=== PATIENT | male | born 1965 | race African-American/Black ===

== ENCOUNTER 2020-09-11 11:16 | Inpatient (IN) | payer SELFPAY ==
[2020-09-11] MEDS ORDERED: NA CHLORIDE 0.9% 1,000 ML ONE (12:11)
--- NOTE | 2020-09-11 12:21 | RAD REPORT ---
EXAM DESCRIPTION: Adi Single View09/11/2020 11:56 am CLINICAL HISTORY: Shortness of breath COMPARISON: none FINDINGS: Mild bilateral pulmonary opacities suspected. Heart is probably upper limits normal size. Mild prominence of mediastinum IMPRESSION: Mild bilateral pulmonary opacities probably pneumonia Mild prominence of mediastinum may represent lymphadenopathy, vessels or mediastinal fat
[2020-09-11 12:28] LABS: Protime INR 1.43
[2020-09-11 12:29] LABS: Absolute Lymphocytes (CBC) 0.5 K/uL (0.7-4.9); Basophils % 0.5 % (0-1.3); Lymphocytes % 15.3 % (15.3-44.8); RBC Red Blood Cell Count 5.46 M/uL (4.33-5.43)
[2020-09-11] MEDS ORDERED: dexAMETHasone 10 MG/ML VIAL ONE (12:31)
[2020-09-11 12:50] LABS: ALT/SGPT 32 U/L (12-78); AST/SGOT 21 U/L (15-37); Albumin 3.4 g/dL (3.4-5.0); Alkaline Phosphatase 78 U/L (45-117); BUN Blood Urea Nitrogen 17 mg/dL (7-18); Bicarbonate 23 mmol/L (21-32); Bilirubin Direct 0.2 mg/dL (0-0.2); Bilirubin Total 0.7 mg/dL (0.2-1.0); Glucose Level 98 mg/dL (74-106); Magnesium 2.2 mg/dL (1.8-2.4); NT PRO-BNP 28 pg/mL (<125); Potassium 3.8 mmol/L (3.5-5.1); Protein, Total 7.6 g/dL (6.4-8.2); Sodium Level 137 mmol/L (136-145); Troponin (Emerg Dept Use Only) < 0.02 ng/mL (0.0-0.045)
[2020-09-11 13:42] LABS: SARS-COV-2 RT PCR POSITIVE (NEGATIVE)
--- NOTE | 2020-09-11 14:34 | EDPHYS ---
Physician Documentation [facility] Name: Angel Luis Escobar Age: 55 yrs Sex: Male : 1965 Arrival Date: 09/11/2020 Time: 11:20 Bed 13 Private MD: ED Physician Iván Richardson HPI: 09/11 11:38 This 55 yrs old Black Male presents to ER via EMS with complaints of Covid +-Shortness jmm of Breath. 11:38 The patient or guardian reports cough. Onset: The symptoms/episode began/occurred jmm gradually, 1 week(s) ago. Modifying factors: The symptoms are alleviated by nothing. the symptoms are aggravated by nothing. This is a 55 year old male with a history of htn, dm, hlp that presents to the ED with complaints of shortness of breath, cough beginnina approx 1 week ago. patient tested positive for covid 19 yesterday complains of increased sob. . Historical: - Allergies: 11:28 No Known Allergies; em - Home Meds: 15:07 allopurinol 300 mg Oral tab 1 tab once daily [Active]; metformin 500 mg Oral tab 1 tab em daily [Active]; losartan 50 mg oral tab 1 tab once daily [Active]; atorvastatin 20 mg oral tab 1 tab once daily [Active]; metoprolol tartrate 100 mg Oral tab 1 tab once daily [Active]; omeprazole 40 mg Oral cpDR 1 cap once daily [Active]; amlodipine 10 mg tab 1 tab once daily [Active]; - PMHx: 11:28 Hypertension; em 15:07 Gout; Hyperlipidemia; em - PSHx: 11:28 Knee surgery; em - Immunization history:: Adult Immunizations up to date. - Social history:: Smoking status: Patient denies any tobacco usage or history of. ROS: 11:38 Constitutional: Positive for body aches, chills, fever. jmm 11:38 Respiratory: Positive for cough, shortness of breath. 11:38 All other systems are negative. Exam: 11:38 Constitutional: This is a well developed, well nourished patient who is awake, alert, jmm and in no acute distress. Head/Face: atraumatic. Eyes: EOMI, no conjunctival erythema appreciated ENT: Moist Mucus Membranes Neck: Trachea midline, Supple Chest/axilla: Normal chest wall appearance and motion. Cardiovascular: Regular rate and rhythm. No edema appreciated Respiratory: Normal respirations, no respiratory distress appreciated Abdomen/GI: Non distended, soft Back: Normal ROM Skin: General appearance color normal MS/ Extremity: Moves all extremities, no obvious deformities appreciated, no edema noted to the lower extremities Neuro: Awake and alert, normal gait Psych: Behavior is normal, Mood is normal, Patient is cooperative and pleasant 12:31 ECG was reviewed by the Attending Physician. [facility] Vital Signs: 11:22 BP 134 / 87; Pulse 82; Resp 20; Temp 99.4(O); Pulse Ox 96% on 2 lpm NC; Weight 136.08 em kg; Height 6 ft. 0 in. (182.88 cm); Pain 0/10; 12:35 Pulse Ox 87% on R/A; em 12:36 BP 131 / 85; Pulse 80; Resp 18; Pulse Ox 92% on 2 lpm NC; em 13:44 BP 132 / 81; Pulse 78; Resp 18; Pulse Ox 93% 2 lpm ; em 15:08 BP 147 / 93; Pulse 80; Resp 18; Pulse Ox 95% on 3 lpm NC; em 11:22 Body Mass Index 40.69 (136.08 kg, 182.88 cm) em MDM: 11:29 Patient medically screened. [facility] 14:31 Data reviewed: vital signs, nurses notes. Counseling: I had a detailed discussion with [facility] the patient and/or guardian regarding: the historical points, exam findings, and any diagnostic results supporting the discharge/admit diagnosis, lab results, radiology results, the need for further work-up and treatment in the hospital. ED course: I discussed the patient with Dr. Gonzalez whom accepted the patient for admission. . 09/11 11:27 Order name: Basic Metabolic Panel; Complete Time: 13:18 [facility] 09/11 11:27 Order name: CBC with Diff; Complete Time: 13:18 [facility] 09/11 11:27 Order name: LFT's; Complete Time: 13:18 [facility] 09/11 11:27 Order name: Magnesium; Complete Time: 13:19 [facility] 09/11 11:27 Order name: NT PRO-BNP; Complete Time: 13:19 [facility] 09/11 11:27 Order name: PT-INR; Complete Time: 13: [facility] 09/11 11:27 Order name: Troponin (emerg Dept Use Only); Complete Time: 13:19 [facility] 09/11 11:27 Order name: Procalcitonin; Complete Time: 14:01 [facility] 09/11 11:27 Order name: Lactate; Complete Time: 13:19 [facility] 09/11 13:42 Order name: COVID-19/FLU A+B; Complete Time: 13:51 [facility] 09/11 19:57 Order name: Glucose, Ancillary Testing; Complete Time: 20:11 [facility] 09/11 23:21 Order name: Urinalysis [facility] 09/11 11:27 Order name: XRAY Chest (1 view); Complete Time: 12:23 [facility] 09/11 11:27 Order name: EKG; Complete Time: 11:28 [facility] 09/11 11:27 Order name: Cardiac monitoring; Complete Time: 13:03 [facility] 09/11 11:27 Order name: EKG - Nurse/Tech; Complete Time: 13:03 [facility] 09/11 11:27 Order name: IV Saline Lock; Complete Time: 12:13 [facility] 09/11 11:27 Order name: Labs collected and sent; Complete Time: 12:13 [facility] 09/11 11:27 Order name: O2 Per Protocol; Complete Time: 12:13 [facility] 09/12 06:02 Order name: CBC with Automated Diff [facility] 09/12 06:33 Order name: Phosphorus [facility] 09/12 06:33 Order name: C-Reactive Protein [facility] 09/12 06:33 Order name: Magnesium [facility] 09/12 06:33 Order name: Ferritin [facility] 09/12 09:05 Order name: CBC Smear Scan [facility] 09/12 13:34 Order name: ABG Arterial Blood Gas [facility] 09/12 13:44 Order name: RAD [facility] 09/11 11:27 Order name: O2 Sat Monitoring; Complete Time: 12:13 jmm EC:31 Rate is 79 beats/min. Rhythm is regular. QRS [place] is Normal. [place] interval is normal. QRS jmm interval is normal. QT interval is normal. No Q waves. T waves are Normal. No ST changes noted. Reviewed by me. Administered Medications: 12:27 Drug: Decadron - Dexamethasone 10 mg Route: IVP; Site: right antecubital; em 14:01 Follow up: Response: No adverse reaction em Disposition: 09/12 17:51 Co-signature as Attending Physician, Iván Richardson MD I agree with the assessment and kdr plan of care. Disposition: 09/11/20 14:33 Hospitalization ordered by Edmar Gonzalez for Observation. Preliminary diagnosis are Coronavirus infection, unspecified, Hypoxia. - Bed requested for Telemetry/MedSurg (observation). - Status is Observation. em - Condition is Stable. - Problem is new. - Symptoms are unchanged. Signatures: Dispatcher [employer] EDCO Iván Richardson MD MD [facility] Rob Mcclure PA PA [facility] Jay Jamison, RN RN em Vikki Juárez RN RN Tiara Ortega Corrections: (The following items were deleted from the chart) 09/11 12:50 11:28 Influenza Screen (A \T\ B)+BA.LAB.BRZ ordered. [facility] EDCO 12:50 11:28 CORONAVIRUS+MR.LAB.BRZ ordered. [facility]CO 14:53 14:33 Hospitalization Ordered by Edmar Gonzalez for Observation. Preliminary diagnosis hb is Coronavirus infection, unspecified; Hypoxia. Bed requested for Telemetry/MedSurg (observation). Status is Observation. Condition is Stable. Problem is new. Symptoms are unchanged. [facility] 09/12 14:42 09/11 14:53 09/11/2020 14:33 Hospitalization Ordered by Edmar Gonzalez for Observation. eb Preliminary diagnosis is Coronavirus infection, unspecified; Hypoxia. Bed requested for [facility] ER HOLD. Status is Observation. Condition is Stable. Problem is new. Symptoms are unchanged. hb 09/12 15:58 14:42 09/11/2020 14:33 Hospitalization Ordered by Edmar Gonzalez for Observation. em Preliminary diagnosis is Coronavirus infection, unspecified; Hypoxia. Bed requested for Telemetry/MedSurg (observation). Status is Observation. Condition is Stable. Problem is new. Symptoms are unchanged. eb
--- NOTE | 2020-09-11 14:34 | ER ---
Nurse's Notes [facility] Name: Angel Luis Escobar Age: 55 yrs Sex: Male : 1965 Arrival Date: 09/11/2020 Time: 11:20 Bed 13 Private MD: Diagnosis: Coronavirus infection, unspecified;Hypoxia Presentation: 09/11 11:22 Chief complaint: EMS states: called out for shortness of breath after testing POS. for em covid yesterday, reports productive cough, SPO2 93 on scene, placed on NC at 2 LPM, denies chest pain. Coronavirus screen: cough unrelated to allergies, nausea, Client reports previous positive COVID test result. Date of collection: September 08, 2020. Ebola Screen: Patient negative for fever greater than or equal to 101.5 degrees Fahrenheit, and additional compatible Ebola Virus Disease symptoms Patient denies exposure to infectious person. Patient denies travel to an Ebola-affected area in the 21 days before illness onset. Initial Sepsis Screen: Does the patient meet any 2 criteria? No. Patient's initial sepsis screen is negative. Does the patient have a suspected source of infection? No. Patient's initial sepsis screen is negative. Risk Assessment: Do you want to hurt yourself or someone else? Patient reports no desire to harm self or others. Onset of symptoms was September 11, 2020. 11:22 Method Of Arrival: EMS: [facility] em 11:22 Acuity: RIYA 3 em Historical: - Allergies: : No Known Allergies; em - Home Meds: 15:07 allopurinol 300 mg Oral tab 1 tab once daily [Active]; metformin 500 mg Oral tab 1 tab em daily [Active]; losartan 50 mg oral tab 1 tab once daily [Active]; atorvastatin 20 mg oral tab 1 tab once daily [Active]; metoprolol tartrate 100 mg Oral tab 1 tab once daily [Active]; omeprazole 40 mg Oral cpDR 1 cap once daily [Active]; amlodipine 10 mg tab 1 tab once daily [Active]; - PMHx: 11:28 Hypertension; em 15:07 Gout; Hyperlipidemia; em - PSHx: 11:28 Knee surgery; em - Immunization history:: Adult Immunizations up to date. - Social history:: Smoking status: Patient denies any tobacco usage or history of. Screenin:30 Abuse screen: Denies threats or abuse. Nutritional screening: No deficits noted. em Tuberculosis screening: No symptoms or risk factors identified. Fall Risk None identified. Assessment: 11:22 General: Appears in no apparent distress. comfortable, Behavior is calm, cooperative, em appropriate for age. Pain: Denies pain. Neuro: Level of Consciousness is awake, alert, obeys commands, Oriented to person, place, time, situation, Appropriate for age. Cardiovascular: Denies chest pain, Capillary refill < 3 seconds Patient's skin is warm and dry. Rhythm is sinus rhythm. Respiratory: Reports shortness of breath on exertion cough that is productive, Airway is patent Respiratory effort is even, unlabored, Respiratory pattern is regular, symmetrical. GI: Reports nausea. Derm: Skin is intact, is healthy with good turgor, Skin is pink, warm \T\ dry. Musculoskeletal: Capillary refill < 3 seconds, Range of motion: intact in all extremities. 12:37 Reassessment: Patient appears in no apparent distress at this time. Patient and/or em family updated on plan of care and expected duration. Pain level reassessed. Patient is alert, oriented x 3, equal unlabored respirations, skin warm/dry/pink. 13:44 Reassessment: Patient appears in no apparent distress at this time. Patient and/or em family updated on plan of care and expected duration. Pain level reassessed. Patient is alert, oriented x 3, equal unlabored respirations, skin warm/dry/pink. 15:07 Reassessment: Patient appears in no apparent distress at this time. Patient and/or em family updated on plan of care and expected duration. Pain level reassessed. Patient is alert, oriented x 3, equal unlabored respirations, skin warm/dry/pink. Vital Signs: 11:22 BP 134 / 87; Pulse 82; Resp 20; Temp 99.4(O); Pulse Ox 96% on 2 lpm NC; Weight 136.08 em kg; Height 6 ft. 0 in. (182.88 cm); Pain 0/10; 12:35 Pulse Ox 87% on R/A; em 12:36 BP 131 / 85; Pulse 80; Resp 18; Pulse Ox 92% on 2 lpm NC; em 13:44 BP 132 / 81; Pulse 78; Resp 18; Pulse Ox 93% 2 lpm ; em 15:08 BP 147 / 93; Pulse 80; Resp 18; Pulse Ox 95% on 3 lpm NC; em 11:22 Body Mass Index 40.69 (136.08 kg, 182.88 cm) em ED Course: 11:20 Patient arrived in ED. em 11:25 Triage completed. em 11:26 Rob Mcclure PA is PHCP. [facility] 11:26 Iván Richardson MD is Attending Physician. [facility] 11:28 Jay Jamison, RN is Primary Nurse. em 11:28 Arm band placed on. em 11:30 Patient has correct armband on for positive identification. Placed in gown. Bed in low em position. Side rails up X2. Pulse ox on. NIBP on. 11:56 XRAY Chest (1 view) In Process Unspecified. EDMS 12:10 Initial lab(s) drawn, by ok, sent to lab. Inserted saline lock: 20 gauge in right em antecubital area, using aseptic technique. Blood collected. 12:50 EKG done, by ED staff, reviewed by Rob DE LA FUENTE. jp3 14:32 Edmar Gonzalez is Hospitalizing Provider. [facility] 15:04 No provider procedures requiring assistance completed. Patient admitted, IV remains in em place. Administered Medications: 12:27 Drug: Decadron - Dexamethasone 10 mg Route: IVP; Site: right antecubital; em 14:01 Follow up: Response: No adverse reaction em Outcome: 14:33 Decision to Hospitalize by Provider. [facility] 09/12 15:26 Admitted to Med/surg accompanied by tech, via stretcher, room 413, with oxygen, with em chart, Report called to PARUL Falcon Condition: stable Instructed on the need for admit, Demonstrated understanding of instructions. 15:58 Patient left the ED. em Signatures: Dispatcher [employer] EDIA Rob Mcclure PA PA Jay Lynn, RN RN em Johnny Sarabia jp3
--- NOTE | 2020-09-11 15:10 | P.HP ---
Certification for Inpatient Patient admitted to: Observation With expected LOS: <2 Midnights Practitioner: I am a practitioner with admitting privileges, knowledge of patient current condition, hospital course, and medical plan of care. Services: Services provided to patient in accordance with Admission requirements found in Title 42 Section 412.3 of the Code of Federal Regulations Patient History Date of Service: 09/11/20 Reason for admission: Shortness of breath History of Present Illness: 55-year-old gentleman with a history of hypertension and hypercholesteremia presented to the emergency department with a complaint of progressive shortness of breath. Patient report 1 week history of cough, fever and shortness of breath. He did and COVID test 4 days ago and was told he is positive yesterday. He presented to the emergency department because of worsening shortness of breath. He was hypoxic on room air in the ED. Chest x-ray demonstrated bilateral pulmonary infiltrates consistent with COVID pneumonia. Patient given a dose of IV steroids and hospitalized for further management. Allergies No Known Drug Allergies Allergy (Unverified 01/11/15 12:20) Unknown NKDA Allergy (Uncoded 01/11/14 19:43) Unknown Home Medications: Allopurinol 300 mg PO DAILY 09/11/20 Amlodipine [Norvasc*] 10 mg PO DAILY 09/11/20 Losartan Potassium 50 mg PO DAILY 09/11/20 Metformin HCl [Glucophage] 500 mg PO DAILY WITH BREAKFAST 09/11/20 Metoprolol Tartrate 100 mg PO DAILY 09/11/20 Omeprazole 40 mg PO DAILY 09/11/20 - Past Medical/Surgical History -: Hypertension -: Hyperlipidemia -: Gout -: GERD -: Knee surgery - Family History Family History: Reviewed- Non-Contributory (The patient reports her mother when he was very young, father a has no medical problem.) - Social History Smoking Status: Never smoker Alcohol use: No CD- Drugs: No Place of Residence: Home Review of Systems Other: Patient denies any diarrhea or abdominal pain or chest pain or palpitation. Except as documented, all other systems reviewed and negative. Physical Examination - Physical Exam General: Alert, In no apparent distress, Oriented x3 HEENT: Normocephalic, EOMI, Sclerae nonicteric Neck: Supple, JVD not distended Respiratory: Normal air movement, Crackles/rales (Mild bibasilar rales) Cardiovascular: No edema, Regular rate/rhythm, Normal S1 S2 Gastrointestinal: Soft and benign, Non-distended, No tenderness Musculoskeletal: No swelling, No tenderness Integumentary: No rashes, No erythema Neurological: Normal speech, Normal strength at 5/5 x4 extr, Cranial nerves 3-12 intact - Studies Laboratory Data (last 24 hrs) 09/11/20 12:10: PT 16.7 H, INR 1.43 09/11/20 12:10: WBC 3.0 L, Hgb 14.9, Hct 45.0, Plt Count 131 L 09/11/20 12:10: Sodium 137, Potassium 3.8, BUN 17, Creatinine 1.17, Glucose 98, Magnesium 2.2, Total Bilirubin 0.7, AST 21, ALT 32, Alkaline Phosphatase 78 Assessment and Plan - Problems (Diagnosis) (1) Pneumonia due to COVID-19 virus Current Visit: Yes Status: Acute (2) Acute respiratory failure with hypoxia Current Visit: Yes Status: Acute (3) Hypertension Current Visit: Yes Status: Acute - Plan Place under observation. Start IV methylprednisolone Start vitamin-C, vitamin-D and zinc supplementation. Titrate oxygen Arranged for home oxygen. Continue home antihypertensives. Monitor inflammatory markers. - Advance Directives Does patient have a Living Will: No Does patient have a Durable POA for Healthcare: No
[2020-09-11] MEDS ORDERED: ACETAMINOPHEN 500 MG TAB PO PRN (15:26)
[2020-09-11] MEDS: ENOXAPARIN 40 MG/0.4 ML SQ SCH (16:48)
[2020-09-11] MEDS ORDERED: ENOXAPARIN 40 MG/0.4 ML SQ ONE (16:52)
[2020-09-11] MEDS ORDERED: INFLUENZA VACCINE (for 3y+) 0.5 ML DOSE IMVAC ONE (20:00)
[2020-09-11] MEDS ORDERED: METHYLPREDNISOLONE 40 MG INJ ONE ×2 (20:30→21:02)
[2020-09-11] MEDS ORDERED: POTASSIUM CL SA 10 MEQ TAB PO ONE ×2 (20:30→21:00)
[2020-09-11] MEDS ORDERED: ASCORBIC ACID 500 MG TABLET ONE (20:30)
[2020-09-11] MEDS: METHYLPREDNISOLONE 125 MG INJ IV SCH (20:40)
[2020-09-11] MEDS: ASCORBIC ACID 500 MG TABLET PO SCH (20:41)
[2020-09-11 23:20] LABS: Urine Appearance CLEAR; Urine Bilirubin NEGATIVE (NEG); Urine Blood NEGATIVE (NEG); Urine Color YELLOW; Urine Glucose NEGATIVE (NEG); Urine Protein NEGATIVE (NEG); Urine Specific Gravity 1.025 (1.005-1.030); Urine pH 5.5 (5.0-7.0)
[2020-09-11 23:21] LABS: Urine Microscopic Reflex NO UMIC
[2020-09-12] MEDS: AMLODIPINE 10 MG TAB PO SCH ×2 (05:30→09:00)
[2020-09-12] MEDS ORDERED: AMLODIPINE 10 MG TAB ONE ×2 (05:42→07:43)
[2020-09-12 05:55] LABS: Absolute Lymphocytes (CBC) 0.4 K/uL (0.7-4.9); Basophils % 0.4 % (0-1.3); Hematocrit 42.9 % (39.6-49.0); Lymphocytes % 17.4 % (15.3-44.8); MPV 9.4 fL (7.6-11.3); RBC Red Blood Cell Count 5.28 M/uL (4.33-5.43)
[2020-09-12 06:25] LABS: C-Reactive Protein 49.3 mg/L (<3.00); Ferritin 566.1 ng/mL (26-388); Phosphorus 3.2 mg/dL (2.5-4.9)
[2020-09-12 06:32] LABS: Magnesium 2.5 mg/dL (1.8-2.4)
[2020-09-12 07:14] VITALS: BMI 40.6
[2020-09-12] MEDS ORDERED: METHYLPREDNISOLONE 125 MG INJ ONE (07:43)
[2020-09-12] MEDS ORDERED: VITAMIN D 1000 UNIT TAB ONE (07:44)
[2020-09-12] MEDS ORDERED: ZINC SULFATE 220 MG CAP ONE (07:44)
[2020-09-12] MEDS ORDERED: ASCORBIC ACID 500 MG TABLET ONE (07:44)
[2020-09-12] MEDS ORDERED: ENOXAPARIN 40 MG/0.4 ML SQ ONE (07:44)
[2020-09-12] MEDS: ASCORBIC ACID 500 MG TABLET PO SCH ×2 (09:00→22:14)
[2020-09-12] MEDS: VITAMIN D 5,000 UNIT CAP PO SCH (09:00)
[2020-09-12] MEDS: ENOXAPARIN 40 MG/0.4 ML SQ SCH (09:00)
[2020-09-12] MEDS: METHYLPREDNISOLONE 125 MG INJ IV SCH ×2 (09:00→21:53)
[2020-09-12] MEDS: ZINC SULFATE 220 MG CAP PO SCH (09:00)
[2020-09-12 09:05] LABS: Blood Morphology Comment NOT SEEN (NOT SEEN); Platelet Estimate DECR; White Blood Cell Scan OK (OK)
--- NOTE | 2020-09-12 10:41 | P.DS ---
Admission Date: 09/12/20 Discharge Date: 09/14/20 Disposition: ROUTINE DISCHARGE Discharge Condition: FAIR Reason for Admission: Shortness of breath - Problems (1) Pneumonia due to COVID-19 virus Status: Acute (2) Acute respiratory failure with hypoxia Status: Acute (3) Hypertension Status: Acute Brief History of Present Illness: 55-year-old gentleman with a history of hypertension and hypercholesteremia presented to the emergency department with a complaint of progressive shortness of breath. Patient report 1 week history of cough, fever and shortness of breath. He did and COVID test 4 days ago and was told he is positive yesterday. He presented to the emergency department because of worsening shortness of breath. He was hypoxic on room air in the ED. Chest x-ray demonstrated bilateral pulmonary infiltrates consistent with COVID pneumonia. Patient given a dose of IV steroids and hospitalized for further management. Hospital Course: Patient admitted to the medical and treated with IV Solu-Medrol, seen, vitamin-D and vitamin-C supplementation. His oxygen saturation was 88% on room air. Patient required high-flow oxygen briefly during the hospital stay but he was weaned down to 2 L of oxygen and he tolerated it with good oxygen saturation both at rest and with ambulation. Patient is discharged with home oxygen and oral prednisone. He is informed to return to the emergency department should he require more oxygen to maintain his oxygen saturation or because he is more short of breath. Vital Signs/Physical Exam: Temp Pulse Resp BP Pulse Ox 98.3 F 91 H 22 H 140/90 93 09/12/20 08:00 09/12/20 09:00 09/12/20 08:00 09/12/20 09:00 09/12/20 08:00 General: Alert, In no apparent distress HEENT: Sclerae nonicteric Neck: Supple Cardiovascular: No edema, Regular rate/rhythm Gastrointestinal: Soft and benign, Non-distended Musculoskeletal: No swelling Integumentary: No rashes Neurological: Other (No focal deficit.) Laboratory Data at Discharge: WBC 2.5 K/uL (4.3-10.9) L D 09/12/20 05:35 Hgb 14.6 g/dL (13.6-17.9) 09/12/20 05:35 Hct 42.9 % (39.6-49.0) 09/12/20 05:35 Plt Count 137 K/uL (152-406) L 09/12/20 05:35 PT 16.7 SECONDS (9.5-12.5) H 09/11/20 12:10 INR 1.43 09/11/20 12:10 Sodium 137 mmol/L (136-145) 09/11/20 12:10 Potassium 3.8 mmol/L (3.5-5.1) 09/11/20 12:10 BUN 17 mg/dL (7-18) 09/11/20 12:10 Creatinine 1.17 mg/dL (0.55-1.3) 09/11/20 12:10 Glucose 98 mg/dL (74-106) 09/11/20 12:10 Phosphorus 3.2 mg/dL (2.5-4.9) 09/12/20 05:35 Magnesium 2.5 mg/dL (1.8-2.4) H 09/12/20 05:35 Total Bilirubin 0.7 mg/dL (0.2-1.0) 09/11/20 12:10 AST 21 U/L (15-37) 09/11/20 12:10 ALT 32 U/L (12-78) 09/11/20 12:10 Alkaline Phosphatase 78 U/L (45-117) 09/11/20 12:10 Home Medications: Allopurinol 300 mg PO DAILY 09/11/20 Amlodipine [Norvasc*] 10 mg PO DAILY 09/11/20 Losartan Potassium 50 mg PO DAILY 09/11/20 Metformin HCl [Glucophage*] 500 mg PO DAILY WITH BREAKFAST 09/11/20 Metoprolol Tartrate 100 mg PO DAILY 09/11/20 Omeprazole 40 mg PO DAILY 09/11/20 Ascorbic Acid [Vitamin C*] 2,000 mg PO BID #240 tablet 09/12/20 Atorvastatin Calcium [Lipitor*] 20 mg PO BEDTIME #30 tab 09/12/20 Cholecalciferol (Vitamin D3) [Vitamin D 5,000 IU Cap*] 5,000 unit PO DAILY #30 cap 09/12/20 Zinc Sulfate [Zinc Sulfate*] 220 mg PO DAILY #30 cap 09/12/20 predniSONE [Prednisone] 20 mg PO BID #42 tablet 09/12/20 New Medications: Atorvastatin Calcium [Lipitor*] 20 mg PO BEDTIME #30 tab predniSONE [Prednisone] 20 mg PO BID #42 tablet Ascorbic Acid [Vitamin C*] 2,000 mg PO BID #240 tablet Cholecalciferol (Vitamin D3) [Vitamin D 5,000 IU Cap*] 5,000 unit PO DAILY #30 cap Zinc Sulfate [Zinc Sulfate*] 220 mg PO DAILY #30 cap Diet: ADA Activity: Ad ene Followup: Prashanth Miller MD [ACTIVE - CAN ADMIT] - 1-2 Weeks (call for appointment.) Unknown,U [Primary Care Provider] - 1-2 Weeks (call for appointment) Time spent managing pt's care (in minutes): 36
--- NOTE | 2020-09-12 12:56 | P.PN ---
Subjective Date of Service: 09/12/20 Chief Complaint: Shortness of breath Nurse report patient is requiring more oxygen. Patient reports feeling better than yesterday. Physical Examination - Vital Signs Temperature: 98.3 F Blood Pressure: 140/90 Pulse: 91 Respirations: 22 Pulse Ox (%): 93 - Physical Exam General: In no apparent distress, Oriented x3 Neck: Supple Cardiovascular: No edema, Regular rate/rhythm Gastrointestinal: Soft and benign, Non-distended Musculoskeletal: No swelling, No tenderness Integumentary: No rashes, No erythema Neurological: Normal speech, Normal strength at 5/5 x4 extr Assessment And Plan - Current Problems (Diagnosis) (1) Pneumonia due to COVID-19 virus Current Visit: Yes Status: Acute (2) Acute respiratory failure with hypoxia Current Visit: Yes Status: Acute (3) Hypertension Current Visit: Yes Status: Acute - Plan Continue IV methylprednisolone Continue vitamin-C, vitamin-D and zinc supplementation. Titrate oxygen. Check arterial blood gas. Repeat chest x-ray today. Arranged for home oxygen. Continue home antihypertensives. Monitor inflammatory markers have trended down.
--- NOTE | 2020-09-12 13:30 | EKG ---
Test Date: 2020-09-11 Test Time: 12:27:31 Application Support Engineer: MAUREEN MEASUREMENT RESULTS: Intervals: Rate: 79 VA: 152 QRSD: 90 QT: 402 QTc: 460 [place]: P: 50 VA: 152 QRS: 3 T: 21 INTERPRETIVE STATEMENTS: Normal sinus rhythm Normal ECG Compared to ECG 08/27/2012 12:13:15 Sinus bradycardia no longer present T-wave abnormality no longer present Electronically Signed On 09-12-20 13:28:23 [employer]INDLE [employer]AME CARVER by Dillon Lin
[2020-09-12 13:32] LABS: Arterial Blood Carboxyhemoglob 0.8 % (0-1.5); Blood Gas Oxyhemoglobin 89.9 % (94-97); Blood O2 Saturation 91.5 % (92-98.5)
--- NOTE | 2020-09-12 13:44 | RAD REPORT ---
EXAM DESCRIPTION: RAD - Chest Single View - 09/12/2020 1:15 pm CLINICAL HISTORY: Follow up COVID pneumonia Chest pain. COMPARISON: Chest Single View dated 09/11/2020; ABDOMEN 1 VIEW KUB dated 10/20/2008 FINDINGS: Portable technique limits examination quality. The lungs are underinflated resulting in vascular crowding. Mild interstitial lung opacities appears mildly improved since preceding day's study. The heart is normal in size.
[2020-09-12] MEDS: METOPROLOL XL 100 MG TAB PO SCH (21:00)
[2020-09-12] MEDS: ATORVASTATIN 20 MG TAB PO SCH (21:53)
[2020-09-12] MEDS ORDERED: METOPROLOL XL 50 MG TAB PO ONE (22:31)
[2020-09-13 06:39] LABS: C-Reactive Protein 22.1 mg/L (<3.00); Ferritin 565.5 ng/mL (26-388)
[2020-09-13] MEDS: AMLODIPINE 10 MG TAB PO SCH (09:06)
[2020-09-13] MEDS: ZINC SULFATE 220 MG CAP PO SCH (09:06)
[2020-09-13] MEDS: VITAMIN D 5,000 UNIT CAP PO SCH (09:06)
[2020-09-13] MEDS: METHYLPREDNISOLONE 125 MG INJ IV SCH ×2 (09:07→21:34)
[2020-09-13] MEDS: ENOXAPARIN 40 MG/0.4 ML SQ SCH ×2 (09:07→21:37)
[2020-09-13] MEDS ORDERED: GUAIFENESIN/CODEINE 5ML UCUP PO PRN (09:46)
--- NOTE | 2020-09-13 10:49 | P.PN ---
Subjective Date of Service: 09/13/20 Chief Complaint: Shortness of breath Patient oxygen requirement has increased and he is now on high-flow oxygen. Repeat chest x-ray done yesterday reviewed and noted under inflation. Physical Examination - Vital Signs Temperature: 98 F Blood Pressure: 144/92 Pulse: 77 Respirations: 21 Pulse Ox (%): 93 - Physical Exam General: Alert, In no apparent distress HEENT: Mucous membr. moist/pink Respiratory: Diminished Cardiovascular: No edema, Regular rate/rhythm, Normal S1 S2 Gastrointestinal: Soft and benign, Non-distended, No tenderness Musculoskeletal: No swelling Integumentary: No rashes Neurological: Normal strength at 5/5 x4 extr Assessment And Plan - Current Problems (Diagnosis) (1) Pneumonia due to COVID-19 virus Current Visit: Yes Status: Acute (2) Acute respiratory failure with hypoxia Current Visit: Yes Status: Acute (3) Hypertension Current Visit: Yes Status: Acute - Plan Continue IV methylprednisolone Continue vitamin-C, vitamin-D and zinc supplementation. Titrate oxygen. Incentive spirometry. Arranged for home oxygen. Continue home antihypertensives. Monitor inflammatory markers.
--- NOTE | 2020-09-13 11:32 | P.CNS ---
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 Complaint: Shortness of breath History of Present Illness: Patient is 55 years of age with a history of hypertension hypercholesterolemia admitted from the emergency department with progressive shortness of breath and cough for the past 1 week he has a history of pain tested positive for leary virus is doing better Allergies No Known Drug Allergies Allergy (Verified 09/11/20 20:05) Unknown Home Medications: Allopurinol 300 mg PO DAILY 09/11/20 Amlodipine [Norvasc*] 10 mg PO DAILY 09/11/20 Losartan Potassium 50 mg PO DAILY 09/11/20 Metformin HCl [Glucophage*] 500 mg PO DAILY WITH BREAKFAST 09/11/20 Metoprolol Tartrate 100 mg PO DAILY 09/11/20 Omeprazole 40 mg PO DAILY 09/11/20 Ascorbic Acid [Vitamin C*] 2,000 mg PO BID #240 tablet 09/12/20 Atorvastatin Calcium [Lipitor*] 20 mg PO BEDTIME #30 tab 09/12/20 Cholecalciferol (Vitamin D3) [Vitamin D 5,000 IU Cap*] 5,000 unit PO DAILY #30 cap 09/12/20 Zinc Sulfate [Zinc Sulfate*] 220 mg PO DAILY #30 cap 09/12/20 predniSONE [Prednisone] 20 mg PO BID #42 tablet 09/12/20 - Past Medical/Surgical History Diabetic: No -: Hypertension -: Hyperlipidemia -: Gout -: GERD -: GERD -: Knee surgery - Social History Alcohol use: No CD- Drugs: No Caffeine use: No Place of Residence: Home Review of Systems General: Weakness Respiratory: Shortness of Breath Physical Examination Temp Pulse Resp BP Pulse Ox 98 F 77 21 H 144/92 H 93 09/13/20 10:49 09/13/20 10:49 09/13/20 10:49 09/13/20 10:49 09/13/20 10:49 General: Alert, Oriented x3, Mild distress - Problems (1) Pneumonia due to COVID-19 virus Current Visit: Yes Status: Acute Plan: Patient is 55 years of age admitted with respiratory failure from leary virus continue with present therapy oxygenation is improving will plan to titrate down to a sat of 90% with 4 L nasal cannula oxygen 1 dose of ivermectin he is on room maximum multi vitamin treatment x-ray shows minimal changes
[2020-09-13] MEDS: ASCORBIC ACID 500 MG TABLET PO SCH ×2 (11:53→21:36)
[2020-09-13] MEDS: ASPIRIN EC 81 MG TAB PO SCH (12:31)
[2020-09-13] MEDS ORDERED: SPECIAL ORDER MED 1 EA UNK PO ONE (17:00)
[2020-09-13] MEDS ORDERED: MELATONIN 5 MG TABLET PO SCH (21:00)
[2020-09-13] MEDS: THIAMINE HCL 100 MG TABLET PO SCH (21:34)
[2020-09-13] MEDS: METOPROLOL XL 100 MG TAB PO SCH (21:35)
[2020-09-13] MEDS: ATORVASTATIN 20 MG TAB PO SCH (21:36)
[2020-09-14 04:41] LABS: Absolute Lymphocytes (CBC) 0.3 K/uL (0.7-4.9); Basophils % 0.2 % (0-1.3); Hematocrit 43.7 % (39.6-49.0); Lymphocytes % 2.8 % (15.3-44.8); MPV 9.6 fL (7.6-11.3); RBC Red Blood Cell Count 5.27 M/uL (4.33-5.43)
[2020-09-14 04:42] LABS: C-Reactive Protein 29.3 mg/L (<3.00)
[2020-09-14 05:17] LABS: Blood Morphology Comment NOT SEEN (NOT SEEN); Platelet Estimate ADEQ
[2020-09-14 07:49] VITALS: O2SAT 91
[2020-09-14] MEDS: AMLODIPINE 10 MG TAB PO SCH (08:25)
[2020-09-14] MEDS: ZINC SULFATE 220 MG CAP PO SCH (08:26)
[2020-09-14] MEDS: THIAMINE HCL 100 MG TABLET PO SCH (08:26)
[2020-09-14] MEDS: ENOXAPARIN 40 MG/0.4 ML SQ SCH (08:26)
[2020-09-14] MEDS: METHYLPREDNISOLONE 125 MG INJ IV SCH (08:26)
[2020-09-14] MEDS: VITAMIN D 5,000 UNIT CAP PO SCH (08:26)
[2020-09-14 08:27] VITALS: BP 125/77
[2020-09-14] MEDS: ASCORBIC ACID 500 MG TABLET PO SCH (08:27)
[2020-09-14 08:45] VITALS: TEMP 98.7
[2020-09-14] MEDS: ASPIRIN EC 81 MG TAB PO SCH (09:00)
[2020-09-14] MEDS ORDERED: VITAMIN D 1000 UNIT TAB PO SCH (09:00)
== END 2020-09-14 10:30 | disposition home or self-care (01) | DRG 177 ==
LOC: ER 11:16 → ERHOLD 15:11 → OBSVTOIN 09-12 13:04 → 4TH 09-12 15:37
PROVIDERS: ADMIT Internal Medicine; ATTEND Internal Medicine
DX: U07.1 COVID-19 (principal); J12.82 Pneumonia due to coronavirus disease 2019; J96.01 Acute respiratory failure with hypoxia; I10 Essential (primary) hypertension; E78.5 Hyperlipidemia, unspecified; M10.9 Gout, unspecified; K21.9 Gastro-esophageal reflux disease without esophagitis; Z79.52 Long term (current) use of systemic steroids; Z79.84 Long term (current) use of oral hypoglycemic drugs; Z79.899 Other long term (current) drug therapy
CPT/HCPCS: 0240U; 36415; 71045; 80048; 80076; 81003; 82728; 82805; 82947; 83605; 83735; 83880; 84100; 84145; 84484; 85025; 85610; 86140; 93005; 94002; 94003; 94760; 96374; 99285; J1100; J1650; J2920; J2930; J7030

== ENCOUNTER 2020-09-25 11:34 | Emergency (ER) | payer SELFPAY ==
--- NOTE | 2020-09-25 14:26 | RAD REPORT ---
EXAM DESCRIPTION: RAD - Chest Pa And Lat (2 Views) - 09/25/2020 1:51 pm CLINICAL HISTORY: COUGH Chest pain. COMPARISON: Chest Single View dated 09/12/2020; Chest Single View dated 09/11/2020; ABDOMEN 1 VIEW KUB dated 10/20/2008 FINDINGS: Mild bilateral interstitial lung opacities are present likely representing viral infection . The heart is normal in size. No displaced fractures.
--- NOTE | 2020-09-25 15:40 | EDPHYS ---
Physician Documentation [facility] Name: Angel Luis Escobar Age: 55 yrs Sex: Male : 1965 Arrival Date: 09/25/2020 Time: 11:38 Bed 6 Private MD: ED Physician Iván Richardson HPI: 09/25 15:25 This 55 yrs old Black Male presents to ER via Ambulatory with complaints of Cough, cp Shortness Of Breath. 15:25 The patient or guardian reports cough, that is intermittent. cp 15:25 Associated signs and symptoms: Pertinent negatives: chest pain, fever, sore throat, cp vomiting. 15:25 Patient reports he was hospitalized with COVID pneumonia 10 days ago. Yesterday became cp short of breath and cough worsened. Today feels better. Patient request to be checked out. Has not f/u with PCP since release from hospital. Historical: - Allergies: 12:22 No Known Allergies; ss - PMHx: 12:22 Gout; Hyperlipidemia; Hypertension; ss - PSHx: 12:22 Knee surgery; ss - Immunization history:: Flu vaccine status is unknown. - Social history:: Smoking status: Patient denies any tobacco usage or history of. ROS: 15:30 Constitutional: Negative for body aches, chills, fever. cp 15:30 Eyes: Negative for injury, pain, redness, and discharge. cp 15:30 Cardiovascular: Negative for chest pain, edema, palpitations. 15:30 Respiratory: Negative for shortness of breath, wheezing. 15:30 Abdomen/GI: Negative for abdominal pain, nausea, vomiting, and diarrhea. 15:30 Neuro: Negative for altered mental status, headache, syncope, weakness. 15:30 All other systems are negative. Exam: 15:35 Constitutional: The patient appears in no acute distress, alert, awake, cp non-diaphoretic, non-toxic, well developed, well nourished, obese. 15:35 Head/Face: Normocephalic, atraumatic. cp 15:35 Eyes: Periorbital structures: appear normal, Conjunctiva: normal, no exudate, no injection, Lids and lashes: appear normal, bilaterally. 15:35 ENT: External ear(s): are unremarkable, Nose: is normal, Posterior pharynx: Airway: no evidence of obstruction, patent. 15:35 Chest/axilla: Inspection: normal, Palpation: is normal, no crepitus, no tenderness. 15:35 Cardiovascular: Rate: normal, Rhythm: regular, Edema: is not appreciated, JVD: is not appreciated. 15:35 Respiratory: the patient does not display signs of respiratory distress, Respirations: normal, no use of accessory muscles, no retractions, labored breathing, is not present, Breath sounds: decreased breath sounds, are not appreciated, stridor, is not appreciated, wheezing: is not appreciated. 15:35 Abdomen/GI: Inspection: abdomen appears normal, Palpation: abdomen is soft and non-tender, in all quadrants. 15:35 Back: pain, is absent, ROM is normal. 15:35 Neuro: Orientation: to person, place \T\ time. Mentation: is normal, Motor: moves all fours, strength is normal, Gait: is steady. Vital Signs: 12:19 BP 150 / 87; Pulse 81; Resp 20; Temp 97.9; Pulse Ox 97% on 4 lpm NC; Weight 136.08 kg; ss Height 6 ft. 4 in. (193.04 cm); Pain 0/10; 15:30 BP 147 / 81; Pulse 85; Resp 20; Temp 97.9; Pulse Ox 97% on 4 lpm NC; bp 12:19 Body Mass Index 36.52 (136.08 kg, 193.04 cm) ss MDM: 15:15 Patient medically screened. cp 15:30 Differential diagnosis: bronchitis, flu. cp 15:38 Data reviewed: vital signs, nurses notes, radiologic studies, plain films. Test cp interpretation: by ED physician or midlevel provider: plain radiologic studies. Counseling: I had a detailed discussion with the patient and/or guardian regarding: the historical points, exam findings, and any diagnostic results supporting the discharge/admit diagnosis, lab results, radiology results, the need for outpatient follow up, a family practitioner, to return to the emergency department if symptoms worsen or persist or if there are any questions or concerns that arise at home. 09/25 13:01 Order name: Chest Pa And Lat (2 Views) XRAY; Complete Time: 15:10 kb Administered Medications: No medications were administered Disposition: 18:49 Co-signature as Attending Physician, Iván Richardson MD I agree with the assessment and kdr plan of care. Disposition: 09/25/20 15:39 Discharged to Home. Impression: Coronavirus infection, unspecified, Pneumonia due to other specified infectious organisms. - Condition is Stable. - Discharge Instructions: COVID-19. - Medication Reconciliation Form, Thank You Letter, Antibiotic Education, Prescription Opioid Use form. - Follow up: Genaro Stewart MD; When: 2 - 3 days; Reason: Recheck today's complaints. - Problem is new. - Symptoms have improved. Signatures: Dispatcher [employer] EDMS Iván Richardson MD MD [facility] Ara Salgado RN RN ss Cuco Royal, PA PA cp Johan Pollack, RN RN bp Corrections: (The following items were deleted from the chart) 15:40 15:39 09/25/2020 15:39 Discharged to Home. Impression: Coronavirus infection, cp unspecified. Condition is Stable. Forms are Medication Reconciliation Form, Thank You Letter, Antibiotic Education, Prescription Opioid Use. Follow up: Genaro Stewart; When: 2 - 3 days; Reason: Recheck today's complaints. Problem is new. Symptoms have improved. cp 15:51 15:40 09/25/2020 15:39 Discharged to Home. Impression: Coronavirus infection, bp unspecified; Pneumonia due to other specified infectious organisms. Condition is Stable. Discharge Instructions: COVID-19. Forms are Medication Reconciliation Form, Thank You Letter, Antibiotic Education, Prescription Opioid Use. Follow up: Genaro Stewart; When: 2 - 3 days; Reason: Recheck today's complaints. Problem is new. Symptoms have improved. cp
--- NOTE | 2020-09-25 15:40 | ER ---
Nurse's Notes [facility] Name: Angel Luis Escobar Age: 55 yrs Sex: Male : 1965 Arrival Date: 09/25/2020 Time: 11:38 Bed 6 Private MD: Diagnosis: Coronavirus infection, unspecified;Pneumonia due to other specified infectious organisms Presentation: 09/25 12:19 Chief complaint: Patient states: Cough and SOB got worse again yesterday. Was admitted ss for covid pneumonia, released about 10 days ago. No fever for 2 days. Wears O2 4L NC all the time at home. Coronavirus screen: Client denies travel out of the [place] in the last 14 days. cough unrelated to allergies, difficulty breathing, shortness of breath, Client presents with at least one sign or symptom that may indicate coronavirus-19. Standard/surgical mask placed on the client. Ebola Screen: Patient denies travel to an Ebola-affected area in the 21 days before illness onset. Initial Sepsis Screen: Does the patient meet any 2 criteria? HR > 90 bpm. No. Patient's initial sepsis screen is negative. Does the patient have a suspected source of infection? Yes: Productive cough/pneumonia. Risk Assessment: Do you want to hurt yourself or someone else? Patient reports no desire to harm self or others. Onset of symptoms was September 24, 2020. 12:19 Method Of Arrival: Ambulatory ss 12:19 Acuity: RIYA 3 Triage Assessment: 15:15 General: Appears distressed, uncomfortable, Behavior is cooperative, appropriate for bp age, anxious. Pain: Denies pain. EENT: No deficits noted. Neuro: No deficits noted. Cardiovascular: No deficits noted. Respiratory: Reports shortness of breath cough that is Onset: The symptoms/episode began/occurred yesterday, the patient has mild shortness of breath. GI: No signs and/or symptoms were reported involving the gastrointestinal system. : No signs and/or symptoms were reported regarding the genitourinary system. Derm: No deficits noted. Musculoskeletal: No deficits noted. Historical: - Allergies: 12:22 No Known Allergies; ss - PMHx: 12:22 Gout; Hyperlipidemia; Hypertension; ss - PSHx: 12:22 Knee surgery; ss - Immunization history:: Flu vaccine status is unknown. - Social history:: Smoking status: Patient denies any tobacco usage or history of. Screenin:15 Abuse screen: Denies threats or abuse. Denies injuries from another. Nutritional bp screening: No deficits noted. Tuberculosis screening: No symptoms or risk factors identified. Fall Risk None identified. Assessment: 15:15 General: SEE TRIAGE NOTE. bp 15:49 Reassessment: PT D/C HOME AMBULATORY, DX WITH COVID PNEUMONIA. Cardiovascular: Rhythm bp is sinus rhythm. Respiratory: Airway is patent Respiratory effort is even, labored, Breath sounds are coarse bilaterally. Vital Signs: 12:19 BP 150 / 87; Pulse 81; Resp 20; Temp 97.9; Pulse Ox 97% on 4 lpm NC; Weight 136.08 kg; ss Height 6 ft. 4 in. (193.04 cm); Pain 0/10; 15:30 BP 147 / 81; Pulse 85; Resp 20; Temp 97.9; Pulse Ox 97% on 4 lpm NC; bp 12:19 Body Mass Index 36.52 (136.08 kg, 193.04 cm) ED Course: 11:38 Patient arrived in ED. ds1 12:21 Triage completed. ss 12:22 Arm band placed on. ss 13:45 Chest Pa And Lat (2 Views) XRAY In Process Unspecified. EDOR 15:09 Cuco Royal PA is PHCP. cp 15:09 Iván Richardson MD is Attending Physician. cp 15:15 Patient has correct armband on for positive identification. Bed in low position. Call bp light in reach. Side rails up X2. 15:19 Johan Pollack, PARUL is Primary Nurse. bp 15:30 No provider procedures requiring assistance completed. Patient did not have IV access bp during this emergency room visit. 15:39 Genaro Stewart MD is Referral Physician. cp Administered Medications: No medications were administered Outcome: 15:30 Discharged to home ambulatory. bp 15:30 Condition: stable 15:30 Discharge instructions given to patient, Instructed on discharge instructions, follow up and referral plans. Demonstrated understanding of instructions, follow-up care. 15:39 Discharge ordered by . cp 15:51 Patient left the ED. bp Signatures: [facility] ds1 Ara Salgado RN RN Cuco Royal PA Johan Guerra cp, RN RN bp Corrections: (The following items were deleted from the chart) 12:22 12:19 BP 150 / 87; Pulse 103bpm; Resp 20bpm; Pulse Ox 97% 4 lpm Nasal Cannula; Temp ss 97.9F; 136.08 kg; Height 6 ft. 4 in.; BMI: 36.5; Pain 0/10; ss
[2020-09-25 16:15] VITALS: TEMP 97.9; O2SAT 97
[2020-09-25 16:17] VITALS: BP 147/81
== END 2020-09-25 15:51 | disposition home or self-care (01) ==
LOC: ER 11:34
DX: U07.1 COVID-19 (principal); J12.82 Pneumonia due to coronavirus disease 2019
CPT/HCPCS: 71046; 99284